=== PATIENT | female | born 1955 | race Caucasian/White ===

== ENCOUNTER 2018-10-26 17:34 | Emergency (ER) | payer SELFPAY ==
[~2018-10-26] VITALS: Ht 162.6 cm; Wt 60.8 kg
[~2018-10-26 17:34] MED LIST: INSASP10V SQ; LISI2.5T PO; LOVA10TA PO
--- OUTSIDE RECORDS SUMMARY | 2018-10-26 17:39 | XMS REPORT | Continuity of Care Document ---
Author Organization Unknown Address Unknown Allergies Active Description Code Type Severity Reaction Onset Reported/Identified Relationship to Patient Clinical Status Yes Penicillins Drug Allergy 09/09/2012 Medications There is no data. Problems Date Dx Coded Attending Type Code Diagnosis Diagnosed By 08/23/2012 133.0 SCABIES 08/23/2012 JENNA MENDOZA DO 133.0 SCABIES 09/09/2012 JENNA MENDOZA DO 250.02 DIABETES MELLITUS WITHOUT MENTION OF COMPLICATION TYPE II OR UNSPECIFIED TYPE UNCONTROLLED 09/09/2012 JENNA MENDOZA DO 709.9 UNSPECIFIED DISORDER OF SKIN AND SUBCUTANEOUS TISSUE 09/09/2012 JENNA MENDOZA DO V58.69 LONG-TERM (CURRENT) USE OF OTHER MEDICATIONS 09/09/2012 JENNA MENDOZA DO V70.0 ROUTINE GENERAL MEDICAL EXAMINATION AT A HEALTH CARE FACILITY Procedures [place] [address] HEMOCCULT 09/09/2012 30747 CBC 09/09/2012 74813 MICRO ALBUMIN-IN HOUSE 09/09/2012 24618 A1C (IN-HOUSE) 09/09/2012 71416 ROUTINE VENIPUNCTURE 09/09/2012 Results There is no data. Encounters ACCT No. Visit Date/Time Discharge Status Pt. Type Provider Facility Loc./Unit Complaint [id number] 09/09/2012 09:53:00 09/09/2012 23:59:59 CLS Outpatient JENNA MENDOZA DO [id number] 08/23/2012 09:58:00 08/23/2012 23:59:59 CLS Outpatient [id number] 11/09/2013 02:09:00 11/09/2013 03:42:00 DIS Emergency
--- OUTSIDE RECORDS SUMMARY | 2018-10-26 17:39 | XMS REPORT ---
Author Author JENNA MENDOZA [facility] Address [address] [place] [address] Care Team Providers Care [employer]able [employer] Division Manager Name Role Phone JENNA MENDOZA Unavailable PROBLEMS Type Condition ICD9-CM Code [id number] Code Onset Dates Condition Status SNOMED Code Problem Scabies 133.0 Active 925579819 Problem Diabetes mellitus without mention of complication, type II or unspecified type, uncontrolled 250.02 Active 634827188 Problem Encounter for long-term (current) use of other medications V58.69 Active 668935101 Problem Unspecified disorder of skin and subcutaneous tissue 709.9 Active 74284213 Problem Routine general medical examination at health care facility V70.0 Active [id number] ALLERGIES Unknown Allergies SOCIAL HISTORY No smoking Hx information available PLAN OF CARE VITAL SIGNS MEDICATIONS Unknown Medications RESULTS No Results PROCEDURES No Known procedures IMMUNIZATIONS No Known Immunizations
--- OUTSIDE RECORDS SUMMARY | 2018-10-26 17:39 | XMS REPORT ---
Author Author Migration, Doctor Organization [facility] Address Unknown Phone Unavailable Care Team Providers Care Feather Mixer Name Role Phone Migration, Doctor Unavailable Unavailable PROBLEMS Type Condition ICD9-CM Code ZGI80-RO Code Onset Dates Condition Status SNOMED Code Problem Diabetes mellitus without mention of complication, type II or unspecified type, uncontrolled 250.02 Active 268363773 Problem Scabies 133.0 Active 079196839 Problem Encounter for long-term (current) use of other medications V58.69 Active 588533142 Problem Routine general medical examination at health care facility V70.0 Active 133130254 Problem Unspecified disorder of skin and subcutaneous tissue 709.9 Active [id number] ALLERGIES No Information ENCOUNTERS Encounter Location Date Diagnosis [place] [id number] [place] [phone] Jun, [place] [address] [place] [id number] [place] [phone] Sep, [place] [address] [place] [id number] [place] [phone] Sep, [place] [id number] [place] [phone] Sep, [place] [id number] [place] [phone] Sep, [place] [address] [place] [id number] [place] [phone] Aug, [place] [address] [place] [id number] [place] [phone] Aug, IMMUNIZATIONS No Known Immunizations SOCIAL HISTORY Never Assessed REASON FOR VISIT [place] [place] CARE VITAL SIGNS MEDICATIONS Unknown Medications RESULTS No Results PROCEDURES No Known procedures INSTRUCTIONS MEDICATIONS ADMINISTERED No Known Medications
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
--- NOTE | 2018-10-26 18:33 | Diagnostic Imaging Report ---
EXAMINATION: PA chest at 6:20 PM INDICATION: Chest pain There are no prior studies available for comparison. The heart size is within normal limits. The lungs are clear. There is no sign of pneumonia or of a pleural effusion and there is no evidence for failure. There is no pneumothorax identified either. The mediastinum is not widened. The osseous structures are intact. IMPRESSION: There is no evidence for an acute cardiopulmonary abnormality. Dictated by: Dictated on workstation # [id number]
--- NOTE | 2018-10-26 18:36 | Diagnostic Imaging Report ---
INDICATION: Injury, arm pain. EXAMINATION: Right forearm at 6:15 p.m. AP and lateral views were obtained. COMPARISON: There are no prior studies available for comparison. FINDINGS: There is a minimal impaction fracture of the radial neck. This injury may be chronic in nature as the posterior fat-pad of the elbow joint is not elevated. If the previous studies are available, they would be helpful comparison. There does appear to be moderate degenerative disease involving the elbow joint. There is also a small calcific density adjacent to the medial epicondyle of the distal humerus. This may be a sequela of prior trauma as well. No other fracture or acute bony abnormality is appreciated. The soft tissues are unremarkable. IMPRESSION: The minimal impaction fracture of the radial neck and the calcific density adjacent to the medial epicondyle distal humerus may well be a sequela of prior trauma. There is no acute bony abnormality identified. Clinical followup is recommended. Dictated by: Dictated on workstation # [id number]
[2018-10-26] MEDS ORDERED: NS IV 1000 ML 1,000 ML IV ONE (18:40)
[2018-10-26] MEDS ORDERED: inSUlin (REGULAR) HUMAN 1 UNIT/0.01 ML (CHARGE PER UNIT) IV ONE (18:45)
--- NOTE | 2018-10-26 18:53 | Diagnostic Imaging Report ---
PROCEDURE: CT head and CT cervical spine without contrast. TECHNIQUE: Multiple contiguous axial images were obtained through the brain and cervical spine without the use of intravenous contrast. Sagittal and coronal reformations through the cervical spine were then performed. Auto Exposure Controls were utilized during the CT exam to meet ALARA standards for radiation dose reduction. INDICATION: Trauma, head and neck pain. CT head: FINDINGS: There is no mass, shift of the midline, or hemorrhage to suggest an acute intracranial abnormality. The ventricles are not abnormally dilated and similar in size to the prior exam of 11/09/2013. In the interval since the prior study, a small area of diminished density has developed in the caudate nucleus on the left. 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 There are also vague areas of low density in the periventricular white matter bilaterally. These findings are nonspecific but may be related to encephalomalacia from prior infarcts as well. The bone windows show no evidence for a fracture or for a destructive lesion. The orbits are symmetrical and within normal limits. The sinuses where visualized are clear. IMPRESSION: 1. There is no evidence for an acute intracranial abnormality. 2. If clinical concern regarding an acute abnormality persists, then MRI will be recommended for further study. CT cervical spine: FINDINGS: There are no prior studies available for comparison. The reconstructed parasagittal images show the vertebral body heights and alignment to be within normal limits. There is fairly severe degenerative disc and bony disease at C6-C7. There is also at least moderate degenerative disc and bony disease at C3-C4, C4-C5, and C5-C6. There is no fracture or acute bony abnormality appreciated. There is no sign of retropharyngeal edema. The thyroid gland is unremarkable. The lung apices are clear. IMPRESSION: There is no evidence for an acute bony abnormality of the cervical spine. Dictated by: Dictated on workstation # [id number]
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
[2018-10-26 20:15] VITALS: BP 0/0
== END 2018-10-26 20:15 | disposition left against medical advice (07) ==
LOC: EDUNIT# 17:34 → ER 17:35
DX: R20.2 Paresthesia of skin (principal); E11.9 Type 2 diabetes mellitus without complications; I10 Essential (primary) hypertension; F15.10 Other stimulant abuse, uncomplicated; E78.00 Pure hypercholesterolemia, unspecified; F32.9 Major depressive disorder, single episode, unspecified; F17.210 Nicotine dependence, cigarettes, uncomplicated; Z98.51 Tubal ligation status; Z91.14 Patient's other noncompliance with medication regimen; Z88.5 Allergy status to narcotic agent; Z88.0 Allergy status to penicillin; Z79.4 Long term (current) use of insulin; V86.95XA Unspecified occupant of 3- or 4- wheeled all-terrain vehicle (ATV) injured in nontraffic accident, initial encounter
CPT/HCPCS: 70450; 71045; 72125; 73090; 73130; 82962